=== PATIENT | male | born 1990 | race Caucasian/White ===

== ENCOUNTER → 2022-04-15 08:56 | Outpatient (BNVA) | payer OTHER, SELFPAY | PROVIDERS: Family Provider Family Medicine; PCP Family Medicine; Visit Provider Clinical Nurse Specialist Adult Health | DX: R30.0 Dysuria (principal); K40.90 Unilateral inguinal hernia, without obstruction or gangrene, not specified as recurrent | CPT/HCPCS: 81000 ==

== ENCOUNTER 2022-05-05 11:42 | Day surgery (SDC) | payer OTHER, SELFPAY ==
[2022-05-02 15:20] VITALS: BMI 25.7
[2022-05-05] VITALS (10 sets, daily range): BP systolic 124–156; BP diastolic 82–95; PULSE 61–83; RESP 15–20; TEMP 36.2–37.3; O2SAT 95–100
[2022-05-05] MEDS: sodium chloride 0.9% 1,000 ML 30 ML IV (12:17)
[2022-05-05] MEDS: scopolamine 1.5 Patch 1 PATCH TRANSDERMA (12:32)
--- NOTE | 2022-05-05 12:38 | W.PM.OPSUD ---
Surgery/Procedure H&P Update DATE OF PROCEDURE: May 05, 2022 DATE H&P PERFORMED: 04/22/22 H&P UPDATE INFORMATION: I have reviewed H&P completed within last 30 days, I have examined patient prior to procedure and No changes to prior documentation PREOP DIAGNOSIS: Bilateral inguinal hernias PLANNED PROCEDURE: Operation Date: 05/05/22 13:30 Proposed Procedures p Laparoscopic Inguinal Hernia Repair, bilateral with mesh(Bilateral) - Bird Vann DO
[2022-05-05] MEDS: ceFAZolin 2,000 MG in sodium chloride 0.9% (plus) 50 ML 100 MG IV (12:41)
--- NOTE | 2022-05-05 13:06 | ANES.PREANE2 ---
Pre-Anesthetic Assessment Height/Weight: Height 1.88 m Weight 90.718 kg Temp Pulse Resp BP Pulse Ox O2 Del Method 99.2 F 69 16 132/82 98 05/05/22 12:00 05/05/22 12:00 05/05/22 12:00 05/05/22 12:00 05/05/22 12:00 05/05/22 12:00 Preop Diagnosis: Bilateral inguinal hernias Operation Date: 05/05/22 13:30 Proposed Procedures p Laparoscopic Inguinal Hernia Repair, bilateral with mesh(Bilateral) - Bird Vann DO Familial anesthetic complications: none Was Beta Papa taken within 24 hours: N/A Was Clonidine taken within 24 hours: N/A Last intake: Intake Last Liquid Date 05/05/22 Last Liquid Time 07:00 Last Solid Date 05/04/22 Last Solid Time 21:00 Social Tobacco (Smokes Trisha) and No alcohol Exam alert, oriented x 3, clear to auscultation bilaterally and regular rate & rhythm Airway Submandibular: within normal limits Cervical ROM: within normal limits Mallampati: Class II Dentition: full History/ROS No significant history except as noted Anesthetic Plan ASA status: 2 Anesthesia: General Medications/Allergies Home Medications Medication Instructions Recorded Confirmed Last Taken Type No Known Home Medications 04/15/22 05/02/22 Unknown History Allergies Allergy/AdvReac Type Severity Reaction Status Date / Time No Known Allergies Allergy Verified 04/22/22 10:47 Current Medications Generic Name Dose Route Start Last Admin Trade Name Freq PRN Reason Stop Dose Admin Sodium Chloride 1,000 mls @ 30 mls/hr 05/05/22 12:00 05/05/22 12:17 Sodium Chloride 0.9% IV 05/06/22 11:59 30 mls/hr .Q24H PAUL Administration PFSH Anesthesia Medical History History of broken leg No pertinent past medical history Surgical History History of eye surgery No pertinent past surgical history Social History Current occupational status: employed Current occupation: construction Data Anesthesia Cardiac Studies: No Data to Display
--- NOTE | 2022-05-05 13:21 | SUR.OPER ---
[id number] ATTEMPT TO UPDATE VIA CELL PHONE
[2022-05-05] MEDS: lidocaine-epi 2% 20 mL INJ 7 ML INJECTION (13:40)
--- NOTE | 2022-05-05 13:49 | PM.OP ---
Operative Report Date of procedure: May 05, 2022 Pre-op diagnosis: Preop Diagnosis Bilateral inguinal hernias Post-op diagnosis: other (Bilateral indirect inguinal hernias) Procedure done: Laparoscopic repair of bilateral inguinal hernias with mesh Implants: Left and right extra-large 3D max Bard meshes Specimens removed/disposition: None Surgeon: Dr. Bird Vann DO Anesthesia: General Estimated blood loss (mL): 5 Complications: None apparent Brief History: This very pleasant 31-year-old male who presented to my office with right groin pain and bulge. He was diagnosed with bilateral inguinal hernias. Laparoscopic repair of bilateral inguinal hernias with mesh was indicated. The risk and benefits were explained and documented. Procedure: Patient was wheeled into the operative room and placed on the OR table in a supine position. Abdomen was inspected prepped and draped in usual sterile fashion. Time-out was performed and all present were in agreement. A 15 blade scalpel was used to make 1.2 centimeter incision infraumbilically. Combination of sharp and blunt dissection was performed down to the anterior rectus sheath which was opened sharply. The dissecting balloon was then inserted into the space of Retzius and blown up. We put the camera into the port and identified that we were in the correct space. I then placed 2 5 millimeter trocars suprapubically in the midline. I then used endokitners to bluntly dissect in the space of Retzius out laterally. An indirect inguinal hernia was identified on the right. Blunt dissection was performed to dissect down the hernia sac until the vas deferens dove medially. An extra-large right inguinal mesh was then placed into the space of Retzius. The mesh was unrolled and tacked once medially at the pubic bone. The mesh laid out nicely over the spermatic cord. An indirect inguinal hernia was identified on the left. Blunt dissection was performed to dissect down the hernia sac until the vas deferens dove medially. An extra-large left inguinal mesh was then placed into the space of Retzius. The mesh was unrolled and tacked once medially at the pubic bone. The mesh laid out nicely over the spermatic cord. I watched the hernia sacs remain in place as insufflation was removed. Incisions were closed with 4-0 Monocryl in a subcuticular interrupted fashion. Skin glue was applied. Patient tolerated the procedure well.
[2022-05-05] MEDS: HYDROcodone-acetaminophen 5-325 mg Tablet 1 TAB PO (15:07)
--- NOTE | 2022-05-05 15:34 | ANE.PACU2 ---
Inpatient post-anesthesia follow up: Airway intact: Yes Vital signs: Temperature 97.6 F Pulse Rate 62 Respiratory Rate 16 Blood Pressure 145/88 Pulse Oximetry 98 Oxygen Delivery Me thod Room Air Oxygen Flow Rate 5 Fraction of Inspir ed Oxygen Hydration adequate: Yes Nausea and vomiting: No Pain level: 2 Mental status: Baseline
--- NOTE | 2022-05-05 16:11 | ANES.PROC ---
Anesthesia Procedures Procedure/Date: 05/05/22 Nerve Block ^: Nerve Block 1: Main Anesthesia: general anesthesia Time Out Performed: Yes Consent: from patient, risks and benefits reviewed and patient agrees to proceed Nerve block location: other (TAP blk bilateral) Anesthesia monitors applied: pulse oximetry, EKG, BP cuff and oxygen Nerve block position: supine Anesthetic Used: ropivicaine 0.5% Amount of anesthesia used (mL): 30 Ultrasound used to: recognize landmarks Nerve Stimulator Used?: No Interscalene/Femoral BLK: 2 stimuplex 22 g needle used for position and inplane approach Injection: neg aspiration of heme Patient Tolerated Procedure: well Complications: none
== END 2022-05-05 15:40 | disposition home or self-care (01) ==
PROVIDERS: PCP Family Medicine; Visit Provider Surgery
PROC: (CPT 49650; principal; 2022-05-05 13:20)
DX: K40.20 Bilateral inguinal hernia, without obstruction or gangrene, not specified as recurrent (principal)
CPT/HCPCS: 49650; 51702; C1781; J0690; J1100; J2250; J2405; J2704; J2795; J3010; J3490; J7030

== ENCOUNTER → 2022-06-26 10:44 | Outpatient (BNVA) | payer OTHER, SELFPAY | PROVIDERS: PCP Family Medicine; Visit Provider Family Medicine | DX: Z00.00 Encounter for general adult medical examination without abnormal findings (principal) | CPT/HCPCS: 80053; 80061; 85025 ==